=== PATIENT | female | born 1985 | race Caucasian/White ===

== ENCOUNTER 2017-12-26 03:04 | Inpatient (IN) | payer OTHER ==
[2017-12-26 03:34] VITALS: BMI 28.3
[2017-12-26] MEDS ORDERED: ONDANSETRON 4 MG/2 ML VIAL IVPUSH ONE (06:00)
[2017-12-26] MEDS ORDERED: SODIUM CHLORIDE 0.9% 500 ML INFUS.BAG IV ONE (06:00)
[2017-12-26] MEDS ORDERED: morphine CARPU-JECT 4 MG/1 ML DISP.SYRIN IVPUSH ONE (06:00)
--- NOTE | 2017-12-26 06:01 | PDOC ---
History of Present Illness - General Chief Complaint: Back Pain Stated Complaint: VOMITING,ABD PAIN Time Seen by Provider: 12/26/17 05:45 History Source: Patient Exam Limitations: No Limitations - History of Present Illness Initial Comments: 32 y/o female presenting to [facility] ER via private auto complaining of abdominal pain and sensation of a full bladder. Pain woke the pt from sleep earlier this morning around 1am. Reports pain is mostly around the lower part of her abdomen and into the right side flank and lower back. No history of similar or trauma to the area. Denies dysuria, hematuria, frequency, or vaginal discharge. Pt is not currently sexually active. Denies history of STDs. Endorses nausea, two episodes of vomiting, subjective fever, and chills. PCP: None PMH: -Anxiety - Depression - ADHD PSH: - Denies Social: - Denies EtOH - Smokes 4 cigerretes per day - Street Drugs: Denies Past History - Past Medical History Allergies/Adverse Reactions: Allergies Allergy/AdvReac Type Severity Reaction Status Date / Time No Known Allergies Allergy Verified 12/26/17 03:34 - Suicide/Smoking/Psychosocial Hx Smoking History: Never smoked Have you smoked in the past 12 months: No Information on smoking cessation initiated: No Hx Alcohol Use: No Drug/Substance Use Hx: No Review of Systems - Review of Systems Able to Perform ROS?: Yes Comments:: In addition to that documented in the HPI above, the additional ROS was obtained : Constitutional: Denies fevers or chills Eyes: Denies vision changes ENMT: Denies sore throat CV: Denies chest pain Resp: Denies SOB GI: Denies diarrhea. Endorses vomiting. : Denies painful urination MSK: Denies recent trauma Skin: Denies new rashes Neuro: Denies new numbness or tingling or weakness Endocrine: Denies polyuria Heme: Denies bleeding or bruising *Physical Exam - Vital Signs Last Vital Signs Temp Pulse Resp BP Pulse Ox 98.1 F 99 H 18 144/94 99 12/26/17 03:31 12/26/17 03:31 12/26/17 03:31 12/26/17 03:31 12/26/17 03:31 - Physical Exam Comments: Constitutional: Well-developed, well-nourished female in obvious discomfort. Found sitting bent forward at the waist in supervisor porcelain department. Alert and oriented x4. Answered all questions appropriately and completely. Speech was non-labored , non-pressured. HEENT: Normocephalic. No obvious external signs of trauma. Hearing grossly normal. No nasal discharge. Neck is supple, trachea is midline. Cardiovascular: Regular rate and regular rhythm. No murmur, rubs, clicks, or gallops. Peripheral pulses: Radial pulses full. Respiratory: Breathing unlabored. Equal chest rise and fall. Clear to auscultation bilaterally. No stridor, no wheezing, no rhonchi. Gastrointestinal: abdomen is tender in RLQ w/ rebound and guarding. Also tender in RUQ and R flank but without guarding. No hepatosplenemegaly. No pulsatile masses. No overlying skin lesions or obvious signs of trauma. Neuro: Alert and oriented. Moving all four extremities spontaneously. Ambulating through department without assistance. Skin: Warm, dry, and intact. No bruising, rashes, or other lesions. No palpable nodules. Lymphatics: No cervical, supraclavicular, epitrochlear or inguinal nodes palpated. : R CVA tenderness. Psych: Affect: tearful. Mood: concerned. ED Treatment Course - LABORATORY CBC & Chemistry Diagram: 12/26/17 06:27 12/26/17 06:27 - RADIOLOGY Radiology Studies Ordered: Category Date Time Status ABDOMEN & PELVIS CT WITH CONTR [CT] Stat CT Scan 12/26/17 05:59 Ordered Medical Decision Making - Medical Decision Making 32 y/o female presenting with sudden onset RLQ pain with rebound and guarding. No history of similar. Afebrile. Vitals remarkable for mild hypertension without tachycardia. Concern for acute appendicitis. D/D includes ectopic , ovarian torsion, ovarian cyst, nephrolithiasis, cystitis, pyelonephritis, PID. Will obtain CBC, CMP, Lipase, serum , UA, urine culture, EKG, pre-op labs, and CT of Abdomen with IV contrast. Ordered morphine , zofran, and NS IVFB for symptom relief. CBC revealed leukocytosis. CMP unremarkable for electrolyte derangement or elevated LFTs. Lipase not elevated. 12/26/17 07:44 Pt signed out to resident Dr. Garcia after she was verbally appraised of the pt's HPI and current condition. Will f/u on pending labs and CT scan. *DC/Admit/Observation/Transfer Diagnosis at time of Disposition: RLQ abdominal pain - Discharge Dispostion Condition at time of disposition: Fair - Referrals - Patient Instructions - Post Discharge Activity
[2017-12-26] MEDS ORDERED: ONDANSETRON 4 MG/2 ML VIAL ONE ×2 (06:31→15:55)
[2017-12-26] MEDS ORDERED: morphine SULFATE 4 MG/ML VIAL ONE (06:31)
[2017-12-26 06:34] LABS: BASO % 0.3 % (0-2.0); EOS % 0.1 % (0-4.5); HEMATOCRIT 39.6 % (32.4-45.2); HEMOGLOBIN 12.9 GM/dL (10.7-15.3); LYMPH % 7.1 % (8-40); MCH 30.3 pg (25.7-33.7); MCHC 32.7 g/dl (32.0-36.0); MEAN CELL VOLUME 92.6 fl (80-96); MEAN PLT VOLUME 8.1 fl (7.5-11.1); MONO % 3.3 % (3.8-10.2); NEUT % 89.2 % (42.8-82.8); PLATELET COUNT 341 K/MM3 (134-434); RBC 4.27 M/mm3 (3.60-5.2); RDW 13.2 % (11.6-15.6)
[2017-12-26 06:44] LABS: INR 1.03 (0.83-1.09); PROTHROMBIN TIME (PATIENT) 12.2 SEC (9.7-13.0)
[2017-12-26 06:56] LABS: ALBUMIN 4.1 g/dl (3.4-5.0); ALK PHOS 74 U/L (45-117); ANION GAP 6 MMOL/L (8-16); BILIRUBIN,TOTAL 0.4 mg/dL (0.2-1); BLOOD UREA NITROGEN 20 mg/dL (7-18); CALCIUM 9.1 mg/dL (8.5-10.1); CHLORIDE 106 mmol/L (98-107); CO2 25 mmol/L (21-32); CREATININE 1.1 mg/dL (0.55-1.3); GLUCOSE,RANDOM 118 mg/dL (74-106); LIPASE 186 U/L (73-393); POTASSIUM 4.1 mmol/L (3.5-5.1); SGOT/AST 20 U/L (15-37); SGPT/ALT 28 U/L (13-61); SODIUM 138 mmol/L (136-145); TOT PROT 7.8 g/dl (6.4-8.2)
--- NOTE | 2017-12-26 07:48 | PDOC ---
*Physical Exam - Vital Signs Last Vital Signs Temp Pulse Resp BP Pulse Ox 98.1 F 99 H 18 144/94 99 12/26/17 03:31 12/26/17 03:31 12/26/17 03:31 12/26/17 03:31 12/26/17 03:31 Heart Score/ECG Review - ECG Impressions Comment:: 12/26/17 12:08 rate 63. regulary rhythm. normal axis. normal intervals. non-specific ST changes. ED Treatment Course - LABORATORY CBC & Chemistry Diagram: 12/26/17 06:27 12/26/17 06:27 - ADDITIONAL ORDERS Additional order review: Laboratory Results 12/26/17 12/26/17 06:27 06:27 PT with INR 12.20 INR 1.03 Sodium 138 Potassium 4.1 Chloride 106 Carbon Dioxide 25 Anion Gap 6 L BUN 20 H Creatinine 1.1 Creat Clearance w eGFR 57.93 Random Glucose 118 H Calcium 9.1 Total Bilirubin 0.4 AST 20 ALT 28 Alkaline Phosphatase 74 Total Protein 7.8 Albumin 4.1 Lipase 186 12/26/17 06:27 RBC 4.27 MCV 92.6 MCHC 32.7 RDW 13.2 MPV 8.1 Neutrophils % 89.2 H Lymphocytes % 7.1 L Monocytes % 3.3 L Eosinophils % 0.1 Basophils % 0.3 - Medications Given in the ED: ED Medications Discontinued Medications Generic Name Dose Route Start Last Admin Trade Name Freq PRN Reason Stop Dose Admin Morphine Sulfate 4 mg 12/26/17 06:00 12/26/17 07:34 Morphine Injection - IVPUSH 12/26/17 06:01 4 mg ONCE ONE Administration Ondansetron HCl 4 mg 12/26/17 06:00 12/26/17 07:35 Zofran Injection IVPUSH 12/26/17 06:01 4 mg ONCE ONE Administration Sodium Chloride 1,000 ml 12/26/17 06:00 12/26/17 07:35 Normal Saline - IV 12/26/17 06:01 1,000 ml ONCE ONE Administration Medical Decision Making - Medical Decision Making 12/26/17 08:25 32 year old female with no PMH A0 presented to ED for lower abdominal pain associated with nausea since 1 am today. Initial examination was significant for - RLQ tenderness (+) guarding. R flank pain (+) CVA tenderness. Pt was given 4 mg IV morphine, 4 mg zofran, IVF in ED. My examination - Constitutional: Well-nourished, Well-developed, appearing stated age. HEENT: head is normocephalic, atraumatic. EOMI. PERRLA. Neck: supple. Full ROM. Heart: regular rhythm. no murmurs, rubs or gallops. Lungs: clear to auscultation bilaterally. no crackles, rhonchi or wheezing. no stridor. Abdomen: soft. tenderness to RLQ. normal bowel sounds. (+) guarding. Pelvic: bimanual examination was performed, no CMT, no tenderness noted bilaterally. Extremities: Peripheral pulses intact. No lower extremity edema. Neurological: CN 2-12 grossly intact. Moves all four extremities. Psych: awake, alert, oriented x3. Follows commands. Answers questions appropriately. Initial Vital Signs Temp Pulse Resp BP Pulse Ox 98.1 F 99 H 18 144/94 99 12/26/17 03:31 12/26/17 03:31 12/26/17 03:31 12/26/17 03:31 12/26/17 03:31 Afebrile. Borderline tachycardia. No tachypnea. Mild hypertension, possibly secondary to pain. No hypoxia on room air. CBC WBC 14.0 K/mm3 (4.0-10.0) H 12/26/17 06:27 RBC 4.27 M/mm3 (3.60-5.2) 12/26/17 06:27 Hgb 12.9 GM/dL (10.7-15.3) 12/26/17 06:27 Hct 39.6 % (32.4-45.2) 12/26/17 06:27 MCV 92.6 fl (80-96) 12/26/17 06:27 MCH 30.3 pg (25.7-33.7) 12/26/17 06: MCHC 32.7 g/dl (32.0-36.0) 12/26/17 06: RDW 13.2 % (11.6-15.6) 12/26/17 06:27 Plt Count 341 K/MM3 (134-434) 12/26/17 06:27 MPV 8.1 fl (7.5-11.1) 12/26/17 06:27 Absolute Neuts (auto) 12.5 K/mm3 (1.5-8.0) H 12/26/17 06:27 Neutrophils % 89.2 % (42.8-82.8) H 12/26/17 06:27 Lymphocytes % 7.1 % (8-40) L 12/26/17 06:27 Monocytes % 3.3 % (3.8-10.2) L 12/26/17 06:27 Eosinophils % 0.1 % (0-4.5) 12/26/17 06:27 Basophils % 0.3 % (0-2.0) 12/26/17 06:27 Nucleated RBC % 0 % (0-0) 12/26/17 06:27 Leukocytosis - WBC 14 Left shift - Neutrophils 89.2% CMP Sodium 138 mmol/L (136-145) 12/26/17 06:27 Potassium 4.1 mmol/L (3.5-5.1) 12/26/17 06:27 Chloride 106 mmol/L (98-107) 12/26/17 06:27 Carbon Dioxide 25 mmol/L (21-32) 12/26/17 06:27 Anion Gap 6 MMOL/L (8-16) L 12/26/17 06:27 BUN 20 mg/dL (7-18) H 12/26/17 06:27 Creatinine 1.1 mg/dL (0.55-1.3) 12/26/17 06:27 Creat Clearance w eGFR 57.93 (>60) 12/26/17 06:27 Random Glucose 118 mg/dL (74-106) H 12/26/17 06:27 Calcium 9.1 mg/dL (8.5-10.1) 12/26/17 06:27 Total Bilirubin 0.4 mg/dL (0.2-1) 12/26/17 06:27 AST 20 U/L (15-37) 12/26/17 06:27 ALT 28 U/L (13-61) 12/26/17 06:27 Alkaline Phosphatase 74 U/L (45-117) 12/26/17 06:27 Total Protein 7.8 g/dl (6.4-8.2) 12/26/17 06:27 Albumin 4.1 g/dl (3.4-5.0) 12/26/17 06:27 Lipase 186 U/L (73-393) 12/26/17 06:27 Serum , Qual Negative 12/26/17 06:27 Elevated BUN, normal Cr. Likely secondary to dehydration. Urine Test Results Urine Color Yellow 12/26/17 08:00 Urine Appearance Cloudy 12/26/17 08:00 Urine pH 6.0 (5.0-8.0) 12/26/17 08:00 Ur Specific [place] 1.023 (1.001-1.035) 12/26/17 08:00 Urine Protein 1+ (NEGATIVE) H 12/26/17 08:00 Urine Glucose (UA) Negative (NEGATIVE) 12/26/17 08:00 Urine Ketones Negative (NEGATIVE) 12/26/17 08:00 Urine Blood 2+ (NEGATIVE) H 12/26/17 08:00 Urine Nitrite Positive (NEGATIVE) 12/26/17 08:00 Urine Bilirubin Negative (<2.0 mg/dL) 12/26/17 08:00 Ur Leukocyte Esterase Trace (NEGATIVE) 12/26/17 08:00 Ur Epithelial Cells Moderate /HPF (FEW) 12/26/17 08:00 Urine Bacteria Rare /hpf (NONE SEEN) 12/26/17 08:00 Urine Mucus Many 12/26/17 08:00 Concern for appendicitis, RLQ tenderness (+) leukocytosis - Pending CT IV contrast Low concern for ovarian torsion, no adnexal tenderness. - If CT negative, will order TVUS Concern for UTI/pyelo - UA positive for blood and protein - UA positive for LE, positive for nitrite, WBC 10 Concern for nephrolithiasis - Pending CT 12/26/17 10:18 Serum test negative. 12/26/17 10:32 CT - 3.8 mm right sided stone at UV junction with hydro. - Pending rectal temperature - Concerned for infected stone - Levaquin 750 mg ordered - Urology paged given the possibility of an infected stone 12/26/17 11:00 Rectal temperature - 98.3F 12/26/17 11:[address] Matamoros about the patient, he agrees that the patient should be admitted and will be consulting. Admitting team paged. 12/26/17 12:[address] Lovett about the case, who agrees to have the patient admitted for suspected infected kidney stone. Pt will be admitted to Dr. Herrera's service. *DC/Admit/Observation/Transfer Diagnosis at time of Disposition: RLQ abdominal pain - Discharge Dispostion Condition at time of disposition: Stable Decision to Admit order: Yes - Referrals - Patient Instructions - Post Discharge Activity
[2017-12-26 08:10] LABS: URINE APPEARANCE CLOUDY; URINE BILIRUBIN NEGATIVE (<2.0 mg/dL); URINE COLOR YELLOW; URINE GLUCOSE (UA) NEGATIVE (NEGATIVE); URINE KETONE NEGATIVE (NEGATIVE); URINE LEUK ESTERASE TRACE (NEGATIVE); URINE NITRITE POSITIVE (NEGATIVE); URINE UROBILINOGEN NEGATIVE mg/dL (0.2-1.0)
[2017-12-26 08:19] LABS: URINE PROTEIN 1+ (NEGATIVE)
[2017-12-26 08:20] LABS: EPI CELLS MODERATE /HPF (FEW); URINE BACTERIA RARE /hpf (NONE SEEN); URINE MUCUS MANY; YEAST RARE
[2017-12-26] MEDS ORDERED: morphine SULFATE 4 MG/ML VIAL IVPUSH PRN (12:39)
[2017-12-26] MEDS ORDERED: KETOROLAC TROMETHAMINE 15 MG/ML VIAL IVPUSH PRN (12:39)
[2017-12-26] MEDS ORDERED: SODIUM CHLORIDE 1,000 ML IV SCH (12:45)
--- NOTE | 2017-12-26 12:45 | HP ---
CHIEF COMPLAINT:Abdominal pain PCP:Not on staff HISTORY OF PRESENT ILLNESS: 32F with history of depression/anxiety, followed by psychiatrist, presents to the hospital with acute onset of abdominal pain and nausea early this morning around 1AM. she states she was in her usual state of health until 1AM. She had a CTAP done which revealed a right 3.8mm stone in the UVJ with proximal hydronephrosis and 3mm nonobstructing stone in the right kidney collecting system. She denies hematuria, dysuria, vomiting, fever, chest pain, diarrhea, constipation, or shortness of breath. Pain is somewhat relieved with morphine. UA in ED found to be positive. Received Levaquin 750mg IV. ER course was notable for: (1)Morphine (2)IVF (3)ABx CT scan Recent Travel:Denies PAST MEDICAL HISTORY:Depression anxiety PAST SURGICAL HISTORY:Denies Social History: Smoking:Smokes 4 cigarettes per day Alcohol:Denies Drugs: Denies Family History:Colon Ca in mother at age 49 Allergies No Known Allergies Allergy (Verified 12/26/17 03:34) HOME MEDICATIONS: Home Medications Medication Instructions Recorded Clonazepam [Klonopin] 2 mg PO HS 12/26/17 Escitalopram Oxalate [Lexapro -] 20 mg PO DAILY 12/26/17 REVIEW OF SYSTEMS CONSTITUTIONAL: Absent: fever, chills, diaphoresis, generalized weakness, malaise, weight change Present:loss of appetite HEENT: Absent: rhinorrhea, nasal congestion, throat pain, throat swelling, difficulty swallowing, mouth swelling, ear pain, eye pain, visual changes CARDIOVASCULAR: Absent: chest pain, syncope, palpitations, irregular heart rate, lightheadedness , peripheral edema RESPIRATORY: Absent: cough, shortness of breath, dyspnea with exertion, orthopnea, wheezing, stridor, hemoptysis GASTROINTESTINAL: Absent: abdominal pain, abdominal distension, vomiting, diarrhea, constipation, melena, hematochezia Present:Nausea GENITOURINARY: Absent: dysuria, frequency, urgency, hesitancy, hematuria, flank pain, genital pain MUSCULOSKELETAL: Absent: myalgia, arthralgia, joint swelling, back pain, neck pain SKIN: Absent: rash, itching, pallor HEMATOLOGIC/IMMUNOLOGIC: Absent: easy bleeding, easy bruising, lymphadenopathy, frequent infections ENDOCRINE: Absent: unexplained weight gain, unexplained weight loss, heat intolerance, cold intolerance NEUROLOGIC: Absent: headache, focal weakness or paresthesias, dizziness, unsteady gait, seizure, mental status changes, bladder or bowel incontinence PSYCHIATRIC: Absent: suicidal or homicidal ideation, hallucinations. Present:anxiety, depression PHYSICAL EXAMINATION Vital Signs - 24 hr 12/26/17 12/26/17 03:31 11:00 Temperature 98.1 F 98.3 F Pulse Rate 99 H Respiratory 18 Rate Blood Pressure 144/94 O2 Sat by Pulse 99 Oximetry (%) GENERAL: Awake, alert, and fully oriented, in no acute distress. HEAD: Normal with no signs of trauma.. NECK: Normal range of motion, supple without JVD. LUNGS: Breath sounds equal, clear to auscultation bilaterally. No accessory muscle use. HEART: Regular rate and rhythm, normal S1 and S2 without murmur, rub or gallop. ABDOMEN: Soft, TTP RUQ and RLQ not distended. Right sided CVA tenderness MUSCULOSKELETAL: Right sided CVA tenderness. UPPER EXTREMITIES: warm, well-perfused. No peripheral edema. LOWER EXTREMITIES: warm, well-perfused. No calf tenderness. No peripheral edema. NEUROLOGICAL: Cranial nerves II-XII intact. Normal speech. PSYCHIATRIC: Cooperative. Good eye contact. Appropriate mood and affect. SKIN: Warm, dry, normal turgor Laboratory Results - last 24 hr 12/26/17 12/26/17 12/26/17 06:27 06:27 06:27 WBC 14.0 H RBC 4.27 Hgb 12.9 Hct 39.6 MCV 92.6 MCH 30.3 MCHC 32.7 RDW 13.2 Plt Count 341 MPV 8.1 Absolute Neuts (auto) 12.5 H Neutrophils % 89.2 H Lymphocytes % 7.1 L Monocytes % 3.3 L Eosinophils % 0.1 Basophils % 0.3 Nucleated RBC % 0 PT with INR 12.20 INR 1.03 PTT (Actin FS) 26.0 Sodium Potassium Chloride Carbon Dioxide Anion Gap BUN Creatinine Creat Clearance w eGFR Random Glucose Calcium Total Bilirubin AST ALT Alkaline Phosphatase Total Protein Albumin Lipase Serum , Qual Urine Color Urine Appearance Urine pH Ur Specific [place] Urine Protein Urine Glucose (UA) Urine Ketones Urine Blood Urine Nitrite Urine Bilirubin Urine Urobilinogen Ur Leukocyte Esterase Urine WBC (Auto) Urine RBC (Auto) Ur Epithelial Cells Urine Bacteria Urine Mucus Urine Yeast 12/26/17 12/26/17 12/26/17 06:27 06:27 08:00 WBC RBC Hgb Hct MCV MCH MCHC RDW Plt Count MPV Absolute Neuts (auto) Neutrophils % Lymphocytes % Monocytes % Eosinophils % Basophils % Nucleated RBC % PT with INR INR PTT (Actin FS) Sodium 138 Potassium 4.1 Chloride 106 Carbon Dioxide 25 Anion Gap 6 L BUN 20 H Creatinine 1.1 Creat Clearance w eGFR 57.93 Random Glucose 118 H Calcium 9.1 Total Bilirubin 0.4 AST 20 ALT 28 Alkaline Phosphatase 74 Total Protein 7.8 Albumin 4.1 Lipase 186 Serum , Qual Negative Urine Color Yellow Urine Appearance Cloudy Urine pH 6.0 Ur Specific [place] 1.023 Urine Protein 1+ H Urine Glucose (UA) Negative Urine Ketones Negative Urine Blood 2+ H Urine Nitrite Positive Urine Bilirubin Negative Urine Urobilinogen Negative Ur Leukocyte Esterase Trace Urine WBC (Auto) 10 Urine RBC (Auto) 58 Ur Epithelial Cells Moderate Urine Bacteria Rare Urine Mucus Many Urine Yeast Rare CTAP: There is right perinephric stranding. There is asymmetrical delay in enhancement of the right kidney with dilatation of the pelvicalyceal system and ureter. A distal stone is identified measuring 3.8 mm at the UV junction with proximal hydronephrosis. A 3 mm nonobstructing stone is noted within the collecting system on the right. ASSESSMENT/PLAN: 32F with PMH of depression and anxiety presents to the ER with acute onset abdominal pain found to have a right obstructing 3.8mm UVJ stone and a mildly positive UA. Sepsis secondary to Right nephrolithiasis with 3.8mm stone at UVJ causing proximal hydronephrosis. Patient also has a weakly positive UA which could be from an infected stone vs contamination from the stone. WBC count >12 HR >90 source is from urine Admit to inpatient services received levaquin in ER start on ceftriaxone 1gm daily given perinephric stranding on CT f/u UCx f/u urology consult-Dr. Shultz pain control antiemetics Leukocytosis: from UTI trend WBC count Depression: Continue lexapro 20mg po daily she states this has really controlled her depression outpatient follow up with psychiatrist Anxiety: Continue Klonopin 2mg po HS follow up with psychiatrist as outpatient FEN: NS @ 125ml/hr no electrolyte issues NPO for now pending urology consult PPx: SCDs/HSQ No GI PPx indicated early ambulation Patient endorses mother had colon Ca at age 49. Counselled on the importance of her and her siblings getting a colonoscopy at age 39. She states her and her mother's physicians have already informed them. Case discussed with Dr. Herrera Visit type - Emergency Visit Emergency Visit: Yes Care time: The patient presented to the Emergency Department on the above date and was hospitalized for further evaluation of their emergent condition. - New Patient This patient is new to me today: Yes Date on this admission: 12/26/17 - Critical Care Critical Care patient: No
[2017-12-26] MEDS ORDERED: ONDANSETRON 4 MG/2 ML VIAL IVPUSH PRN (13:22)
[2017-12-26] MEDS ORDERED: MIDAZOLAM HCL 2 MG/2 ML SINGLE DOSE VIAL ONE (13:35)
[2017-12-26] MEDS ORDERED: PROPOFOL 20 ML ONE (13:35)
--- NOTE | 2017-12-26 13:44 | CON.GU ---
Consult - History of Present Illness History of Present Illness: 32 yo female admitted with rt renal colic secondary to obstructive 3mm RDU stone , fever, positive UA and elevated WBC. No prior history - Alcohol/Substance Use Hx Alcohol Use: No - Smoking History Smoking history: Never smoked Have you smoked in the past 12 months: No Home Medications - Allergies Allergies/Adverse Reactions: Allergies Allergy/AdvReac Type Severity Reaction Status Date / Time No Known Allergies Allergy Verified 12/26/17 03:34 - Home Medications Home Medications: Ambulatory Orders Clonazepam [Klonopin] 2 mg PO HS 12/26/17 Escitalopram Oxalate [Lexapro -] 20 mg PO DAILY 12/26/17 Physical Exam- Vital Signs: Vital Signs Temperature 98.9 F 12/26/17 12:55 Pulse Rate 90 12/26/17 12:55 Respiratory Rate 16 12/26/17 12:55 Blood Pressure 125/90 12/26/17 12:55 O2 Sat by Pulse Oximetry (%) 99 12/26/17 12:55 Labs: CBC, BMP 12/26/17 06:27 12/26/17 06:27 Imaging - Results Cat Scan: Report Reviewed Problem List - Problems (1) Right ureteral stone Assessment/Plan: in light of pos UA, elevated WBC and fever, will plan for emergent stent placement Code(s): N20.1 - CALCULUS OF URETER
[2017-12-26] MEDS ORDERED: CEFTRIAXONE 1 GM in DEXTROSE 5%-WATER - 50 ML IVPB SCH (13:45)
[2017-12-26] MEDS: ONDANSETRON 4 MG/2 ML VIAL IVPUSH PRN (15:56)
[2017-12-26] MEDS: SODIUM CHLORIDE 1,000 ML IV SCH ×2 (17:04→23:14)
[2017-12-26] MEDS: LACTATED RINGERS SOLUTION 1,000 ML IV SCH (17:31)
[2017-12-26] MEDS ORDERED: HEPARIN NA (PORCINE) 5,000 UNITS/ML 1ML VIAL SQ SCH (18:00)
--- NOTE | 2017-12-26 18:30 | PN ---
Teaching Attending Note Name of Resident: Milton Lovett ATTENDING PHYSICIAN STATEMENT I saw and evaluated the patient. I reviewed the resident's note and discussed the case with the resident. I agree with the resident's findings and plan as documented. SUBJECTIVE: This is a 32 year old woman with a history of depression, anxiety who comes to the ED complaining of abdominal pain, nausea and vomiting that awoke her from sleep around 1am. The pain is located in the right flank and right side of her abdomen. She reports having fever and chills. OBJECTIVE: Vital Signs Period Temp Pulse Resp BP Sys/Buck Pulse Ox Last 24 Hr 97.7 F-99.8 F 70-115 14-20 108-144/54-94 99-100 HEART: S1S2, tachycardic LUNGS: Clear ABDOMEN: Soft, non-distended, (+) RLQ tenderness, (+) right CVA tenderness, normal BS EXTREMITIES: No edema Laboratory Tests 12/26/17 12/26/17 12/26/17 06:27 06:27 06:27 WBC 14.0 H RBC 4.27 Hgb 12.9 Hct 39.6 MCV 92.6 MCH 30.3 MCHC 32.7 RDW 13.2 Plt Count 341 MPV 8.1 Absolute Neuts (auto) 12.5 H Neutrophils % 89.2 H Lymphocytes % 7.1 L Monocytes % 3.3 L Eosinophils % 0.1 Basophils % 0.3 Nucleated RBC % 0 PT with INR 12.20 INR 1.03 PTT (Actin FS) 26.0 Sodium Potassium Chloride Carbon Dioxide Anion Gap BUN Creatinine Creat Clearance w eGFR Random Glucose Calcium Total Bilirubin AST ALT Alkaline Phosphatase Total Protein Albumin Lipase Serum , Qual Urine Color Urine Appearance Urine pH Ur Specific [place] Urine Protein Urine Glucose (UA) Urine Ketones Urine Blood Urine Nitrite Urine Bilirubin Urine Urobilinogen Ur Leukocyte Esterase Urine WBC (Auto) Urine RBC (Auto) Ur Epithelial Cells Urine Bacteria Urine Mucus Urine Yeast 12/26/17 12/26/17 12/26/17 06:27 06:27 08:00 WBC RBC Hgb Hct MCV MCH MCHC RDW Plt Count MPV Absolute Neuts (auto) Neutrophils % Lymphocytes % Monocytes % Eosinophils % Basophils % Nucleated RBC % PT with INR INR PTT (Actin FS) Sodium 138 Potassium 4.1 Chloride 106 Carbon Dioxide 25 Anion Gap 6 L BUN 20 H Creatinine 1.1 Creat Clearance w eGFR 57.93 Random Glucose 118 H Calcium 9.1 Total Bilirubin 0.4 AST 20 ALT 28 Alkaline Phosphatase 74 Total Protein 7.8 Albumin 4.1 Lipase 186 Serum , Qual Negative Urine Color Yellow Urine Appearance Cloudy Urine pH 6.0 Ur Specific [place] 1.023 Urine Protein 1+ H Urine Glucose (UA) Negative Urine Ketones Negative Urine Blood 2+ H Urine Nitrite Positive Urine Bilirubin Negative Urine Urobilinogen Negative Ur Leukocyte Esterase Trace Urine WBC (Auto) 10 Urine RBC (Auto) 58 Ur Epithelial Cells Moderate Urine Bacteria Rare Urine Mucus Many Urine Yeast Rare Home Medications Medication Instructions Recorded Clonazepam [Klonopin] 2 mg PO HS 12/26/17 Escitalopram Oxalate [Lexapro -] 20 mg PO DAILY 12/26/17 ASSESSMENT AND PLAN: This is a 32 year old woman with a history of depression, anxiety who presented to the ED with abdominal pain, nausea, vomiting, fever, and chills. 1. Sepsis (tachycardia, WBC 14.0) secondary to UTI with obstructing right UVJ stone - Levaquin given in ED - will change to Rocephin - IV fluid - Toradol as needed for pain - Zofran as needed for nausea - Follow up urine culture - Urology consult 2. Depression with anxiety - Continue Lexapro, Klonopin
[2017-12-26] MEDS: HEPARIN NA (PORCINE) 5,000 UNITS/ML 1ML VIAL SQ SCH (18:49)
--- NOTE | 2017-12-26 21:52 | EKG ---
Test Reason : Blood Pressure : / mmHG Vent. Rate : 063 BPM Atrial Rate : 063 BPM P-R Int : 110 ms QRS Dur : 084 ms QT Int : 428 ms P-R-T Axes : 048 044 048 degrees QTc Int : 437 ms SINUS RHYTHM WITH SHORT UT NONSPECIFIC T WAVE ABNORMALITY ABNORMAL ECG NO PREVIOUS ECGS AVAILABLE Confirmed by KHALIF HOOD MD ([id number]) on 12/26/2017 9:52:14 PM Referred By: Confirmed By:KHALIF HOOD MD
[2017-12-26] MEDS ORDERED: clonazePAM 2 MG TABLET PO SCH (22:00)
[2017-12-26] MEDS: clonazePAM 0.5 MG TABLET PO SCH (22:01)
[2017-12-27] MEDS: HEPARIN NA (PORCINE) 5,000 UNITS/ML 1ML VIAL SQ SCH ×3 (02:03→18:23)
[2017-12-27] MEDS: morphine SULFATE 4 MG/ML VIAL IVPUSH PRN ×3 (05:59→18:04)
[2017-12-27] MEDS: SODIUM CHLORIDE 1,000 ML IV SCH (06:01)
[2017-12-27 08:21] LABS: ANION GAP 7 MMOL/L (8-16); BLOOD UREA NITROGEN 11 mg/dL (7-18); CALCIUM 8.3 mg/dL (8.5-10.1); CHLORIDE 109 mmol/L (98-107); CO2 25 mmol/L (21-32); CREATININE 0.7 mg/dL (0.55-1.3); GLUCOSE,RANDOM 116 mg/dL (74-106); MAGNESIUM 1.9 mg/dL (1.8-2.4); POTASSIUM 3.8 mmol/L (3.5-5.1); SODIUM 141 mmol/L (136-145)
[2017-12-27 08:22] LABS: BASO % 0.3 % (0-2.0); EOS % 0.6 % (0-4.5); HEMATOCRIT 32.3 % (32.4-45.2); HEMOGLOBIN 10.7 GM/dL (10.7-15.3); LYMPH % 15.2 % (8-40); MCH 30.9 pg (25.7-33.7); MCHC 33.3 g/dl (32.0-36.0); MEAN CELL VOLUME 92.9 fl (80-96); MEAN PLT VOLUME 8.4 fl (7.5-11.1); MONO % 5.2 % (3.8-10.2); NEUT % 78.7 % (42.8-82.8); PLATELET COUNT 261 K/MM3 (134-434); RBC 3.47 M/mm3 (3.60-5.2); WHITE BLOOD COUNT 12.5 K/mm3 (4.0-10.0)
[2017-12-27] MEDS ORDERED: ESCITALOPRAM OXALATE 20 MG TABLET (FP) PO SCH (10:00)
[2017-12-27] MEDS ORDERED: cefTRIAXone SODIUM 1 GM VIAL ONE (10:13)
[2017-12-27] MEDS ORDERED: ESCITALOPRAM OXALATE 10 MG TABLET (FP) ONE ×2 (10:13→10:19)
[2017-12-27] MEDS ORDERED: DEXTROSE 5%-WATER - 50 ML IVPB ONE (10:13)
[2017-12-27] MEDS: CEFTRIAXONE 1 GM in DEXTROSE 5%-WATER - 50 ML IVPB SCH (10:16)
[2017-12-27] MEDS: ESCITALOPRAM OXALATE 20 MG TABLET (FP) PO SCH (10:19)
[2017-12-27] MEDS: LACTATED RINGERS SOLUTION 1,000 ML IV SCH (14:43)
--- NOTE | 2017-12-27 15:14 | PN ---
Physical Exam: SUBJECTIVE: Patient seen and examined. She complains of right back pain and gets relief with Toradol. OBJECTIVE: Vital Signs Period Temp Pulse Resp BP Sys/Buck Pulse Ox Last 24 Hr 98.0 F-101.4 F 75-104 14-20 102-128/62-79 99-100 GENERAL: The patient is awake, alert, and fully oriented, in no acute distress. LUNGS: Breath sounds equal, clear to auscultation bilaterally, no wheezes, no crackles, no accessory muscle use. HEART: Regular rhythm, tachycardic, S1, S2 without murmur, rub or gallop. ABDOMEN: Soft, nontender, nondistended, normoactive bowel sounds, no guarding, no rebound, no hepatosplenomegaly, no masses. (+) right CVA tenderness. EXTREMITIES: 2+ pulses, warm, well-perfused, no edema. Laboratory Results - last 24 hr 12/27/17 12/27/17 12/27/17 07:20 07:20 07:20 WBC 12.5 H RBC 3.47 L Hgb 10.7 Hct 32.3 L D MCV 92.9 MCH 30.9 MCHC 33.3 RDW 13.0 Plt Count 261 D MPV 8.4 Absolute Neuts (auto) 9.9 H Neutrophils % 78.7 Lymphocytes % 15.2 D Monocytes % 5.2 Eosinophils % 0.6 D Basophils % 0.3 Nucleated RBC % 0 Sodium 141 Potassium 3.8 Chloride 109 H Carbon Dioxide 25 Anion Gap 7 L BUN 11 Creatinine 0.7 Creat Clearance w eGFR > 60 Random Glucose 116 H Hemoglobin A1c % 5.4 Calcium 8.3 L Phosphorus 3.0 Magnesium 1.9 Active Medications Generic Name Dose Route Start Last Admin Trade Name Freq PRN Reason Stop Dose Admin Clonazepam 2 mg 12/26/17 22:00 12/26/17 22:01 Klonopin - PO 2 mg HS FARHANA Administration Escitalopram Oxalate 20 mg 12/27/17 10:00 12/27/17 10:19 Lexapro - PO 20 mg DAILY FARHANA Administration Fentanyl 50 mcg 12/26/17 14:27 12/26/17 16:30 Sublimaze Injection - IVPUSH 50 mcg [id number] PRN Administration PAIN-PACU ORDER X 4 DOSES ONLY Heparin Sodium (Porcine) 5,000 unit 12/26/17 18:00 12/27/17 10:17 Heparin - SQ 5,000 unit Q8H-IV FARHANA Administration Lactated Ringer's 1,000 mls @ 125 mls/hr 12/26/17 14:30 12/27/17 14:43 Lactated Ringers Solution IV Not Given ASDIR FARHANA Ceftriaxone Sodium 1 gm/ 50 mls @ 100 mls/hr 12/27/17 10:00 12/27/17 10:16 Dextrose IVPB 100 mls/hr DAILY FARHANA Administration Sodium Chloride 1,000 mls @ 125 mls/hr 12/26/17 14:48 12/27/17 06:01 Normal Saline - IV 125 mls/hr ASDIR FARHANA Administration Ketorolac Tromethamine 15 mg 12/26/17 14:48 Toradol Injection - IVPUSH 12/31/17 12:38 Q6H PRN PAIN LEVEL 1-5 Morphine Sulfate 4 mg 12/26/17 14:48 12/27/17 12:21 Morphine Sulfate IVPUSH 4 mg Q4H PRN Administration PAIN LEVEL 6-10 Ondansetron HCl 4 mg 12/26/17 14:48 12/26/17 15:56 Zofran Injection IVPUSH 4 mg Q6H PRN Administration NAUSEA AND/OR VOMITING ASSESSMENT/PLAN: This is a 32 year old woman with a history of depression, anxiety who presented to the ED with abdominal pain, nausea, vomiting, fever, and chills. 1. Sepsis (tachycardia, WBC 14.0) secondary to UTI with obstructing right UVJ stone - Had temp 101.4 last night - Urine culture growing gram negative rods - Continue Rocephin, IV fluid, Toradol as needed for pain, Zofran as needed for nausea - Plan for stent placement 2. Depression with anxiety - Continue Lexapro, Klonopin Visit type - Emergency Visit Emergency Visit: Yes ED Registration Date: 12/26/17 Care time: The patient presented to the Emergency Department on the above date and was hospitalized for further evaluation of their emergent condition. - New Patient This patient is new to me today: No - Critical Care Critical Care patient: No - Discharge Referral Referred to [facility] Med P.C.: No
[2017-12-27] MEDS: ONDANSETRON 4 MG/2 ML VIAL IVPUSH PRN (18:04)
[2017-12-27] MEDS: ACETAMINOPHEN 325 MG TABLET (FP) PO PRN (20:39)
[2017-12-27] MEDS: KETOROLAC TROMETHAMINE 15 MG/ML VIAL IVPUSH PRN (22:17)
[2017-12-28] MEDS: clonazePAM 0.5 MG TABLET PO SCH ×2 (00:42→21:50)
[2017-12-28] MEDS: SODIUM CHLORIDE 1,000 ML IV SCH ×4 (00:45→18:59)
[2017-12-28] MEDS: HEPARIN NA (PORCINE) 5,000 UNITS/ML 1ML VIAL SQ SCH ×3 (02:00→17:46)
[2017-12-28 08:21] LABS: BASO % 0.5 % (0-2.0); EOS % 0.6 % (0-4.5); HEMATOCRIT 34.5 % (32.4-45.2); HEMOGLOBIN 11.4 GM/dL (10.7-15.3); LYMPH % 18.2 % (8-40); MCH 30.7 pg (25.7-33.7); MEAN CELL VOLUME 93.2 fl (80-96); MEAN PLT VOLUME 8.5 fl (7.5-11.1); MONO % 5.4 % (3.8-10.2); NEUT % 75.3 % (42.8-82.8); PLATELET COUNT 241 K/MM3 (134-434); RDW 12.9 % (11.6-15.6); WHITE BLOOD COUNT 5.8 K/mm3 (4.0-10.0)
--- NOTE | 2017-12-28 08:37 | PN ---
Physical Exam: SUBJECTIVE: Patient seen and examined feels nauseous, fevers last night, c/o malaise and CVA pain, unable to walk around due to malaise + hematuria and +dysuria stent placed yesterday OBJECTIVE: Vital Signs Period Temp Pulse Resp BP Sys/Buck Pulse Ox Last 24 Hr 98.4 F-102.6 F 75-98 20-20 110-152/65-75 98-98 GENERAL: The patient is awake, alert, in mild discomfort EYES: sclera anicteric, conjunctiva clear. No ptosis. ENT: oropharynx clear without exudates, moist mucous membranes. LUNGS: Breath sounds equal, clear to auscultation bilaterally, no wheezes, no crackles, no accessory muscle use. HEART: Regular rate and rhythm, S1, S2 without murmur, rub or gallop. ABDOMEN: Soft, nontender, nondistended, normoactive bowel sounds, no guarding, no rebound, +CVA tenderness b/l EXTREMITIES: 2+ radial and DP pulses, warm, well-perfused, no edema. SKIN: Warm, clammy Laboratory Results - last 24 hr 12/27/17 12/27/17 12/28/17 07:20 07:20 07:15 WBC 12.5 H 5.8 RBC 3.47 L 3.70 Hgb 10.7 11.4 Hct 32.3 L D 34.5 MCV 92.9 93.2 MCH 30.9 30.7 MCHC 33.3 33.0 RDW 13.0 12.9 Plt Count 261 D 241 MPV 8.4 8.5 Absolute Neuts (auto) 9.9 H 4.4 Neutrophils % 78.7 75.3 Lymphocytes % 15.2 D 18.2 Monocytes % 5.2 5.4 Eosinophils % 0.6 D 0.6 Basophils % 0.3 0.5 Nucleated RBC % 0 0 Hemoglobin A1c % 5.4 Active Medications Generic Name Dose Route Start Last Admin Trade Name Freq PRN Reason Stop Dose Admin Acetaminophen 650 mg 12/27/17 19:49 12/27/17 20:39 Tylenol - PO 650 mg Q6H PRN Administration Fever Or Pain Clonazepam 2 mg 12/26/17 22:00 12/28/17 00:42 Klonopin - PO 2 mg HS FARHANA Administration Escitalopram Oxalate 20 mg 12/27/17 10:00 12/27/17 10:19 Lexapro - PO 20 mg DAILY FARHANA Administration Fentanyl 50 mcg 12/26/17 14:27 12/26/17 16:30 Sublimaze Injection - IVPUSH 50 mcg [id number] PRN Administration PAIN-PACU ORDER X 4 DOSES ONLY Heparin Sodium (Porcine) 5,000 unit 12/26/17 18:00 12/28/17 02:00 Heparin - SQ Not Given Q8H-IV FARHANA Lactated Ringer's 1,000 mls @ 125 mls/hr 12/26/17 14:30 12/27/17 14:43 Lactated Ringers Solution IV Not Given ASDIR FARHANA Ceftriaxone Sodium 1 gm/ 50 mls @ 100 mls/hr 12/27/17 10:00 12/27/17 10:16 Dextrose IVPB 100 mls/hr DAILY FARHANA Administration Sodium Chloride 1,000 mls @ 125 mls/hr 12/26/17 14:48 12/28/17 00:45 Normal Saline - IV 125 mls/hr ASDIR FARHANA Administration Ketorolac Tromethamine 15 mg 12/26/17 14:48 12/27/17 22:17 Toradol Injection - IVPUSH 12/31/17 12:38 15 mg Q6H PRN Administration PAIN LEVEL 1-5 Morphine Sulfate 4 mg 12/26/17 14:48 12/27/17 18:04 Morphine Sulfate IVPUSH 4 mg Q4H PRN Administration PAIN LEVEL 6-10 Ondansetron HCl 4 mg 12/26/17 14:48 12/27/17 18:04 Zofran Injection IVPUSH 4 mg Q6H PRN Administration NAUSEA AND/OR VOMITING ASSESSMENT/PLAN: 32 year old woman with depression, anxiety who presented to the ED with abdominal pain, nausea, vomiting, fever, and chills found to have obstructing nephrolithiasis atthe right UVJ admitted for sepsis. #Sepsis secondary to UTI with obstructing right UVJ stone - continued to have fevers last night a/w chills, continue tylenol prn and IVF - if pt continues to have fevers, plan to re-culture and change abx to broad spectrum - ucx with pansensitive e.coli, continue ceftriaxone 1gm daily, started 12/27 - Toradol and morphine as needed for pain - de-escalate tomorrow if pain improved - Zofran as needed for nausea - s/p stent placement on 12/[address] Layton #Depression with anxiety - Continue home medications Lexapro, Klonopin DVT:heparin q8hr subq diet: regular Visit type - Emergency Visit Emergency Visit: No - New Patient This patient is new to me today: Yes Date on this admission: 12/28/17 - Critical Care Critical Care patient: No - Discharge Referral Referred to [facility] Med P.C.: No
[2017-12-28 08:46] LABS: ANION GAP 7 MMOL/L (8-16); BLOOD UREA NITROGEN 5 mg/dL (7-18); CHLORIDE 109 mmol/L (98-107); CO2 26 mmol/L (21-32); CREATININE 0.7 mg/dL (0.55-1.3); GLUCOSE,RANDOM 85 mg/dL (74-106); POTASSIUM 3.9 mmol/L (3.5-5.1); SODIUM 141 mmol/L (136-145)
[2017-12-28] MEDS ORDERED: cefTRIAXone SODIUM 1 GM VIAL ONE (08:48)
[2017-12-28] MEDS ORDERED: ESCITALOPRAM OXALATE 10 MG TABLET (FP) ONE (08:48)
[2017-12-28] MEDS ORDERED: DEXTROSE 5%-WATER - 50 ML IVPB ONE (08:48)
[2017-12-28] MEDS: ONDANSETRON 4 MG/2 ML VIAL IVPUSH PRN (08:54)
[2017-12-28] MEDS: CEFTRIAXONE 1 GM in DEXTROSE 5%-WATER - 50 ML IVPB SCH (09:03)
[2017-12-28] MEDS: ESCITALOPRAM OXALATE 20 MG TABLET (FP) PO SCH (09:03)
[2017-12-28] MEDS: KETOROLAC TROMETHAMINE 15 MG/ML VIAL IVPUSH PRN (10:34)
--- NOTE | 2017-12-28 13:33 | PN ---
Teaching Attending Note Name of Resident: Ildefonso Mathews ATTENDING PHYSICIAN STATEMENT I saw and evaluated the patient. I reviewed the resident's note and discussed the case with the resident. I agree with the resident's findings and plan as documented. SUBJECTIVE: Patient feels tired. She still has back pain. She had fever 102.6 yesterday. OBJECTIVE: Vital Signs Period Temp Pulse Resp BP Sys/Buck Pulse Ox Last 24 Hr 98.7 F-102.6 F 75-98 18-20 126-152/65-75 98-98 HEART: S1S2, RRR LUNGS: Clear ABDOMEN: Soft, non-tender, non-distended, normal BS, (+) right CVA tenderness EXTREMITIES: No edema Laboratory Results - last 24 hr 12/28/17 12/28/17 07:15 07:15 WBC 5.8 RBC 3.70 Hgb 11.4 Hct 34.5 MCV 93.2 MCH 30.7 MCHC 33.0 RDW 12.9 Plt Count 241 MPV 8.5 Absolute Neuts (auto) 4.4 Neutrophils % 75.3 Lymphocytes % 18.2 Monocytes % 5.4 Eosinophils % 0.6 Basophils % 0.5 Nucleated RBC % 0 Sodium 141 Potassium 3.9 Chloride 109 H Carbon Dioxide 26 Anion Gap 7 L BUN 5 L Creatinine 0.7 Creat Clearance w eGFR > 60 Random Glucose 85 Calcium 8.0 L Current Medications Generic Name Dose Route Start Last Admin Trade Name Freq PRN Reason Stop Dose Admin Acetaminophen 650 mg 12/27/17 19:49 12/27/17 20:39 Tylenol - PO 650 mg Q6H PRN Administration Fever Or Pain Clonazepam 2 mg 12/26/17 22:00 12/28/17 00:42 Klonopin - PO 2 mg HS FARHANA Administration Escitalopram Oxalate 20 mg 12/27/17 10:00 12/28/17 09:03 Lexapro - PO 20 mg DAILY FARHANA Administration Fentanyl 50 mcg 12/26/17 14:27 12/26/17 16:30 Sublimaze Injection - IVPUSH 50 mcg [id number] PRN Administration PAIN-PACU ORDER X 4 DOSES ONLY Heparin Sodium (Porcine) 5,000 unit 12/26/17 18:00 12/28/17 09:03 Heparin - SQ 5,000 unit Q8H-IV FARHANA Administration Lactated Ringer's 1,000 mls @ 125 mls/hr 12/26/17 14:30 12/27/17 14:43 Lactated Ringers Solution IV Not Given ASDIR FARHANA Ceftriaxone Sodium 1 gm/ 50 mls @ 100 mls/hr 12/27/17 10:00 12/28/17 09:03 Dextrose IVPB 100 mls/hr DAILY FARHANA Administration Sodium Chloride 1,000 mls @ 125 mls/hr 12/26/17 14:48 12/28/17 08:56 Normal Saline - IV 125 mls/hr ASDIR FARHANA Administration Ketorolac Tromethamine 15 mg 12/26/17 14:48 12/28/17 10:34 Toradol Injection - IVPUSH 12/31/17 12:38 15 mg Q6H PRN Administration PAIN LEVEL 1-5 Morphine Sulfate 4 mg 12/26/17 14:48 12/27/17 18:04 Morphine Sulfate IVPUSH 4 mg Q4H PRN Administration PAIN LEVEL 6-10 Ondansetron HCl 4 mg 12/26/17 14:48 12/28/17 08:54 Zofran Injection IVPUSH 4 mg Q6H PRN Administration NAUSEA AND/OR VOMITING ASSESSMENT AND PLAN: This is a 32 year old woman with a history of depression, anxiety who presented to the ED with abdominal pain, nausea, vomiting, fever, and chills. 1. Sepsis (tachycardia, WBC 14.0) secondary to E. coli UTI with obstructing right UVJ stone - Had temp 102.6 yesterday afternoon and has been afebrile since - WBC improved - Urine culture growing E. coli - Continue Rocephin, IV fluid, Toradol as needed for pain, Zofran as needed for nausea - Stent placed 12/26 2. Depression with anxiety - Continue Lexapro, Klonopin
[2017-12-28] MEDS: morphine SULFATE 4 MG/ML VIAL IVPUSH PRN (16:16)
[2017-12-29] MEDS: KETOROLAC TROMETHAMINE 15 MG/ML VIAL IVPUSH PRN ×3 (00:58→18:01)
[2017-12-29] MEDS: HEPARIN NA (PORCINE) 5,000 UNITS/ML 1ML VIAL SQ SCH ×3 (01:48→18:00)
[2017-12-29] MEDS: SODIUM CHLORIDE 1,000 ML IV SCH ×2 (03:14→11:11)
[2017-12-29 06:32] LABS: URINE APPEARANCE CLEAR; URINE BILIRUBIN NEGATIVE (<2.0 mg/dL); URINE COLOR LTYELLOW; URINE GLUCOSE (UA) NEGATIVE (NEGATIVE); URINE KETONE NEGATIVE (NEGATIVE); URINE LEUK ESTERASE NEGATIVE (NEGATIVE); URINE NITRITE NEGATIVE (NEGATIVE); URINE PROTEIN NEGATIVE (NEGATIVE); URINE UROBILINOGEN NEGATIVE mg/dL (0.2-1.0)
[2017-12-29 06:37] LABS: EPI CELLS RARE /HPF (FEW); URINE BACTERIA MODERATE /hpf (NONE SEEN); URINE MUCUS RARE
--- NOTE | 2017-12-29 10:20 | CON.ID ---
Consult Consult Specialty:: infectious disease Referred by:: hospitalist Reason for Consultation:: fever - History of Present Illness Chief Complaint: abdominal pain History of Present Illness: 32 year old female presented to ED on 12/26 with acute onset of abdominal pain and nausea early am- no fevers ct scan showed nephrolithiasis with right UVJ stone and dialtation of ureter on the right, with right perinephric stranding she received levaquin in the ED she had stent placement on 12/26 she was switch to ceftriaxone yesterday continues with fever -intermittent- as high as 102 nausea has resolved refused blood cultures earlier, now agreeable urine culture with pansensitive ecoli +history prior uti never hospitalized recently lost her job, has moved back in with her mother no sick contacts no recent antiibotics no vaginal discharge, last sexually active one month ago - History Source History Provided By: Patient, Medical Record Limitations to Obtaining History: Clinical Condition - Past Medical History ...LMP: 12/10/17 ...: No Psych: Yes: Anxiety, Depression - Past Surgical History Past Surgical History: Yes: None - Alcohol/Substance Use Hx Alcohol Use: No - Smoking History Smoking history: Current every day smoker Have you smoked in the past 12 months: Yes Aproximately how many cigarettes per day: 4 - Social History Usual Living Arrangement: With Parent ADL: Independent Occupation: unemployed Place of : [facility] History of Recent Travel: No Home Medications - Allergies Allergies/Adverse Reactions: Allergies Allergy/AdvReac Type Severity Reaction Status Date / Time No Known Allergies Allergy Verified 12/26/17 03:34 - Home Medications Home Medications: Ambulatory Orders Clonazepam [Klonopin] 2 mg PO HS 12/26/17 Escitalopram Oxalate [Lexapro -] 20 mg PO DAILY 12/26/17 Family Disease History - Family Disease History Family History: Denies Review of Systems - Review of Systems Constitutional: reports: Chills, Fever Eyes: reports: No Symptoms HENT: reports: No Symptoms Neck: reports: No Symptoms Cardiovascular: denies: Chest Pain Respiratory: denies: Cough Gastrointestinal: reports: Abdominal Pain (right flank) Genitourinary: reports: No Symptoms Physical Exam Vital Signs: Vital Signs Temperature 98.9 F 12/29/17 06:05 Pulse Rate 72 12/29/17 06:05 Respiratory Rate 18 12/29/17 06:05 Blood Pressure 114/64 12/29/17 06:05 O2 Sat by Pulse Oximetry (%) 98 12/28/17 22:00 Constitutional: Yes: Well Nourished, No Distress, Calm Eyes: Yes: Conjunctiva Clear HENT: Yes: Atraumatic, Normocephalic Neck: Yes: Supple, Trachea Midline Cardiovascular: Yes: Regular Rate and Rhythm Respiratory: Yes: Regular, CTA Bilaterally Gastrointestinal: Yes: Normal Bowel Sounds, Soft. No: Tenderness, Rebound ...Rectal Exam: Yes: Deferred Renal/: Yes: CVA Tenderness - Right Extremities: Yes: WNL Edema: No Psychiatric: Yes: Alert Labs: CBC, BMP 12/28/17 07:15 12/28/17 07:15 Microbiology 12/26/17 08:00 Urine - Urine Clean Catch Urine Culture - Final Escherichia Coli Imaging - Results Cat Scan: Report Reviewed Problem List - Problems (1) Fever Code(s): R50.9 - FEVER, UNSPECIFIED (2) E-coli UTI Code(s): N39.0 - URINARY TRACT INFECTION, SITE NOT SPECIFIED; B96.20 - UNSP ESCHERICHIA COLI THE CAUSE OF DISEASES CLASSD ELSWHR (3) Right ureteral stone Code(s): N20.1 - CALCULUS OF URETER Assessment/Plan intermittent fevers- I suspect will resolve next 24 hours s/p ureteral stent for obstructed stone pansensitive ecoli UTI wbc now normal continue ceftriaxone increase to 2 g daily continue ivf agreeable to hiv testing will order
--- NOTE | 2017-12-29 10:33 | PN ---
Physical Exam: SUBJECTIVE: Patient seen and examined. Back pain is improving. She describes it now as discomfort. Had fever 102.9 overnight. OBJECTIVE: Vital Signs Period Temp Pulse Resp BP Sys/Buck Pulse Ox Last 24 Hr 98.4 F-102.9 F 72-100 18-18 105-137/60-74 98 GENERAL: The patient is awake, alert, and fully oriented, in no acute distress. LUNGS: Breath sounds equal, clear to auscultation bilaterally, no wheezes, no crackles, no accessory muscle use. HEART: Regular rate and rhythm, S1, S2 without murmur, rub or gallop. ABDOMEN: Soft, nontender, nondistended, normoactive bowel sounds, no guarding, no rebound, no hepatosplenomegaly, no masses. (+) mild right CVA tenderness EXTREMITIES: 2+ pulses, warm, well-perfused, no edema. Laboratory Results - last 24 hr 12/29/17 06:00 Urine Color Ltyellow Urine Appearance Clear Urine pH 6.0 Ur Specific [place] 1.004 L Urine Protein Negative Urine Glucose (UA) Negative Urine Ketones Negative Urine Blood 3+ H Urine Nitrite Negative Urine Bilirubin Negative Urine Urobilinogen Negative Ur Leukocyte Esterase Negative Urine WBC (Auto) 1 Urine RBC (Auto) 15 Ur Epithelial Cells Rare Urine Bacteria Moderate Urine Mucus Rare Active Medications Generic Name Dose Route Start Last Admin Trade Name Freq PRN Reason Stop Dose Admin Acetaminophen 650 mg 12/27/17 19:49 12/27/17 20:39 Tylenol - PO 650 mg Q6H PRN Administration Fever Or Pain Clonazepam 2 mg 12/26/17 22:00 12/28/17 21:50 Klonopin - PO 2 mg HS FARHANA Administration Escitalopram Oxalate 20 mg 12/27/17 10:00 12/28/17 09:03 Lexapro - PO 20 mg DAILY FARHANA Administration Fentanyl 50 mcg 12/26/17 14:27 12/26/17 16:30 Sublimaze Injection - IVPUSH 50 mcg [id number] PRN Administration PAIN-PACU ORDER X 4 DOSES ONLY Heparin Sodium (Porcine) 5,000 unit 12/26/17 18:00 12/29/17 01:48 Heparin - SQ Not Given Q8H-IV FARHANA Sodium Chloride 1,000 mls @ 125 mls/hr 12/26/17 14:48 12/29/17 03:14 Normal Saline - IV 125 mls/hr ASDIR FARHANA Administration Ceftriaxone Sodium 2 gm in 50 mls @ 100 mls/hr 12/29/17 10:30 Ceftriaxone 2 Gm-D5w Bag IVPB DAILY [facility] Protocol Ketorolac Tromethamine 15 mg 12/26/17 14:48 12/29/17 00:58 Toradol Injection - IVPUSH 12/31/17 12:38 15 mg Q6H PRN Administration PAIN LEVEL 1-5 Morphine Sulfate 4 mg 12/26/17 14:48 12/28/17 16:16 Morphine Sulfate IVPUSH 4 mg Q4H PRN Administration PAIN LEVEL 6-10 Ondansetron HCl 4 mg 12/26/17 14:48 12/28/17 08:54 Zofran Injection IVPUSH 4 mg Q6H PRN Administration NAUSEA AND/OR VOMITING ASSESSMENT/PLAN: This is a 32 year old woman with a history of depression, anxiety who presented to the ED with abdominal pain, nausea, vomiting, fever, and chills. 1. Sepsis secondary to E. coli UTI with obstructing right UVJ stone - Stent placed 12/26 - Had temp 102.9 last night - WBC improved yesterday - Urine culture repeated last night - Patient refused labs and blood cultures - Continue Rocephin, IV fluid, Toradol as needed for pain, Zofran as needed for nausea - ID consult 2. Depression with anxiety - Continue Alla Joe Visit type - Emergency Visit Emergency Visit: Yes ED Registration Date: 12/26/17 Care time: The patient presented to the Emergency Department on the above date and was hospitalized for further evaluation of their emergent condition. - New Patient This patient is new to me today: No - Critical Care Critical Care patient: No - Discharge Referral Referred to [facility] Med P.C.: No
[2017-12-29] MEDS ORDERED: ESCITALOPRAM OXALATE 10 MG TABLET (FP) ONE (10:39)
[2017-12-29] MEDS ORDERED: DEXTROSE 5%-WATER 100 ML IVPB ONE (10:40)
[2017-12-29] MEDS: CEFTRIAXONE 2 GM in DEXTROSE 5%-WATER 100 ML IVPB SCH (10:52)
[2017-12-29] MEDS: ESCITALOPRAM OXALATE 20 MG TABLET (FP) PO SCH (10:53)
[2017-12-29] MEDS: ONDANSETRON 4 MG/2 ML VIAL IVPUSH PRN (18:00)
[2017-12-29] MEDS: clonazePAM 0.5 MG TABLET PO SCH (21:24)
[2017-12-30] MEDS: morphine SULFATE 4 MG/ML VIAL IVPUSH PRN (00:19)
[2017-12-30] MEDS: HEPARIN NA (PORCINE) 5,000 UNITS/ML 1ML VIAL SQ SCH ×3 (02:05→18:02)
--- NOTE | 2017-12-30 03:29 | HOSP ---
Physical Examination Vital Signs: Vital Signs Temperature 98.8 F 12/29/17 10:00 Pulse Rate 73 12/29/17 10:00 Respiratory Rate 18 12/29/17 10:00 Blood Pressure 135/85 12/29/17 10:00 O2 Sat by Pulse Oximetry (%) 98 12/29/17 22:00 Labs: CBC, BMP 12/28/17 07:15 12/28/17 07:15 Hospitalist Encounter Assessment: Hospitalist team paged to evaluate pt as she is refusing I.V fluids at this time. Pt states refusing I.V fluids bc it is making her go to bathroom too frequently. Agreed to keep fluids on lowest rate so that ABx may continue to be infused. Visit type - Emergency Visit Emergency Visit: No - New Patient This patient is new to me today: Yes Date on this admission: 12/30/17 - Critical Care Critical Care patient: No
[2017-12-30] MEDS: SODIUM CHLORIDE 1,000 ML IV SCH ×2 (04:00→10:33)
[2017-12-30] MEDS: ACETAMINOPHEN 325 MG TABLET (FP) PO PRN ×2 (06:07→19:27)
[2017-12-30] MEDS: KETOROLAC TROMETHAMINE 15 MG/ML VIAL IVPUSH PRN ×2 (08:26→17:07)
[2017-12-30] MEDS ORDERED: ESCITALOPRAM OXALATE 10 MG TABLET (FP) ONE (10:04)
[2017-12-30] MEDS: ESCITALOPRAM OXALATE 20 MG TABLET (FP) PO SCH (10:28)
[2017-12-30] MEDS: CEFTRIAXONE 2 GM in DEXTROSE 5%-WATER 100 ML IVPB SCH (11:54)
--- NOTE | 2017-12-30 13:19 | PN ---
Physical Exam: SUBJECTIVE: Patient seen and examined. She reports she is still having right flank pain and nausea. OBJECTIVE: Vital Signs Period Temp Pulse Resp BP Sys/Buck Pulse Ox Last 24 Hr 97.6 F-100.0 F 77-86 18-20 138-154/86-89 98 GENERAL: The patient is awake, alert, and fully oriented, in no acute distress. LUNGS: Breath sounds equal, clear to auscultation bilaterally, no wheezes, no crackles, no accessory muscle use. HEART: Regular rate and rhythm, S1, S2 without murmur, rub or gallop. ABDOMEN: Soft, nontender, nondistended, normoactive bowel sounds, no guarding, no rebound, no hepatosplenomegaly, no masses. (+) mild right CVA tenderness EXTREMITIES: 2+ pulses, warm, well-perfused, no edema. Active Medications Generic Name Dose Route Start Last Admin Trade Name Freq PRN Reason Stop Dose Admin Acetaminophen 650 mg 12/27/17 19:49 12/30/17 06:07 Tylenol - PO 650 mg Q6H PRN Administration Fever Or Pain Clonazepam 2 mg 12/26/17 22:00 12/29/17 21:24 Klonopin - PO 2 mg HS FARHANA Administration Escitalopram Oxalate 20 mg 12/27/17 10:00 12/30/17 10:28 Lexapro - PO 20 mg DAILY FARHANA Administration Fentanyl 50 mcg 12/26/17 14:27 12/26/17 16:30 Sublimaze Injection - IVPUSH 50 mcg [id number] PRN Administration PAIN-PACU ORDER X 4 DOSES ONLY Heparin Sodium (Porcine) 5,000 unit 12/26/17 18:00 12/30/17 10:28 Heparin - SQ 5,000 unit Q8H-IV FARHANA Administration Ceftriaxone Sodium 2 gm/ 100 mls @ 200 mls/hr 12/29/17 10:30 12/30/17 11:54 Dextrose IVPB 200 mls/hr DAILY FARHANA Administration Protocol Sodium Chloride 1,000 mls @ 42 mls/hr 12/30/17 03:27 12/30/17 10:33 Normal Saline - IV 42 mls/hr ASDIR FARHANA Administration Ketorolac Tromethamine 15 mg 12/26/17 14:48 12/30/17 08:26 Toradol Injection - IVPUSH 12/31/17 12:38 15 mg Q6H PRN Administration PAIN LEVEL 1-5 Morphine Sulfate 4 mg 12/26/17 14:48 12/30/17 00:19 Morphine Sulfate IVPUSH 4 mg Q4H PRN Administration PAIN LEVEL 6-10 Ondansetron HCl 4 mg 12/26/17 14:48 12/29/17 18:00 Zofran Injection IVPUSH 4 mg Q6H PRN Administration NAUSEA AND/OR VOMITING ASSESSMENT/PLAN: This is a 32 year old woman with a history of depression, anxiety who presented to the ED with abdominal pain, nausea, vomiting, fever, and chills. 1. Sepsis secondary to E. coli UTI with obstructing right UVJ stone - Stent placed 12/26 - Fevers, tachycardia, leukocytosis improved - Urine culture (12/26) grew E. coli - Urine culture (12/29) growing gram neg rods, coag neg Staph - Refused blood cultures (12/29) - Continue Rocephin, IV fluid, Toradol as needed for pain, Zofran as needed for nausea - Renal US ordered 2. Depression with anxiety - Continue Alla Joe Visit type - Emergency Visit Emergency Visit: Yes ED Registration Date: 12/26/17 Care time: The patient presented to the Emergency Department on the above date and was hospitalized for further evaluation of their emergent condition. - New Patient This patient is new to me today: No - Critical Care Critical Care patient: No - Discharge Referral Referred to [facility] No
--- NOTE | 2017-12-30 14:38 | PN ---
Progress Note (short form) - Note Progress Note: continues with right sided pain, still gets morphine! temps down Vital Signs Period Temp Pulse Resp BP Sys/Buck Pulse Ox Last 24 Hr 97.6 F-100.0 F 77-86 18-20 138-154/86-89 98 laying on her right side I cannot examine her refuses to lay flat to permit exam lungs clear CBC, BMP 12/28/17 07:15 12/28/17 07:15 Microbiology 12/29/17 10:30 Blood - Peripheral Venous Blood Culture - Preliminary NO GROWTH OBTAINED AFTER 24 HOURS, INCUBATION TO CONTINUE FOR 4 DAYS. 12/29/17 09:45 Blood - Peripheral Venous Blood Culture - Preliminary NO GROWTH OBTAINED AFTER 24 HOURS, INCUBATION TO CONTINUE FOR 4 DAYS. 12/29/17 06:00 Urine - Urine Clean Catch Urine Culture - Preliminary Non Lactose Fermenting Gnb Staphylococcus Coagulase Neg 12/26/17 08:00 Urine - Urine Clean Catch Urine Culture - Final Escherichia Coli a/p ecoli uti s/p ureteral stent (right) continue ceftriaxone wll get renal sonogram to evaluate continued pain urology f/u Problem List - Problems (1) Fever Code(s): R50.9 - FEVER, UNSPECIFIED (2) E-coli UTI Code(s): N39.0 - URINARY TRACT INFECTION, SITE NOT SPECIFIED; B96.20 - UNSP ESCHERICHIA COLI THE CAUSE OF DISEASES CLASSD ELSWHR (3) Right ureteral stone Code(s): N20.1 - CALCULUS OF URETER
[2017-12-30] MEDS: ONDANSETRON 4 MG/2 ML VIAL IVPUSH PRN (17:03)
[2017-12-30] MEDS: clonazePAM 0.5 MG TABLET PO SCH (21:01)
[2017-12-30] MEDS ORDERED: MELATONIN 5 MG TABLETS PO ONE (23:36)
[2017-12-31] MEDS: HEPARIN NA (PORCINE) 5,000 UNITS/ML 1ML VIAL SQ SCH ×2 (02:00→11:49)
[2017-12-31] MEDS: SODIUM CHLORIDE 1,000 ML IV SCH (04:03)
[2017-12-31 06:22] VITALS: TEMP 98.8
[2017-12-31] MEDS: KETOROLAC TROMETHAMINE 15 MG/ML VIAL IVPUSH PRN (08:04)
[2017-12-31 10:05] VITALS: BP 153/88; PULSE 50
[2017-12-31] MEDS ORDERED: PT OWN MED DRAWER 7, Y5N ONE (10:05)
[2017-12-31] MEDS: CEFTRIAXONE 2 GM in DEXTROSE 5%-WATER 100 ML IVPB SCH (11:48)
[2017-12-31] MEDS: ESCITALOPRAM OXALATE 20 MG TABLET (FP) PO SCH (11:49)
[2017-12-31] MEDS: ACETAMINOPHEN 325 MG TABLET (FP) PO PRN (14:27)
--- NOTE | 2017-12-31 15:27 | PN ---
Physical Exam: SUBJECTIVE: Patient seen and examined OBJECTIVE: Vital Signs Period Temp Pulse Resp BP Sys/Buck Pulse Ox Last 24 Hr 98.2 F-98.8 F 50-76 18-20 131-153/87-90 GENERAL: The patient is awake, alert, and fully oriented, in no acute distress. HEAD: Normal with no signs of trauma. EYES: PERRL, extraocular movements intact, sclera anicteric, conjunctiva clear. No ptosis. ENT: Ears normal, nares patent, oropharynx clear without exudates, moist mucous membranes. NECK: Trachea midline, full range of motion, supple. LUNGS: Breath sounds equal, clear to auscultation bilaterally, no wheezes, no crackles, no accessory muscle use. HEART: Regular rate and rhythm, S1, S2 without murmur, rub or gallop. ABDOMEN: Soft, nontender, nondistended, normoactive bowel sounds, no guarding, no rebound, no hepatosplenomegaly, no masses. EXTREMITIES: 2+ pulses, warm, well-perfused, no edema. NEUROLOGICAL: Cranial nerves II through XII grossly intact. Normal speech, gait not observed. PSYCH: Normal mood, normal affect. SKIN: Warm, dry, normal turgor, no rashes or lesions noted Active Medications Generic Name Dose Route Start Last Admin Trade Name Freq PRN Reason Stop Dose Admin Acetaminophen 650 mg 12/27/17 19:49 12/31/17 14:27 Tylenol - PO 650 mg Q6H PRN Administration Fever Or Pain Clonazepam 2 mg 12/26/17 22:00 12/30/17 21:01 Klonopin - PO 2 mg HS FARHANA Administration Escitalopram Oxalate 20 mg 12/27/17 10:00 12/31/17 11:49 Lexapro - PO Not Given DAILY FARHANA Fentanyl 50 mcg 12/26/17 14:27 12/26/17 16:30 Sublimaze Injection - IVPUSH 50 mcg [id number] PRN Administration PAIN-PACU ORDER X 4 DOSES ONLY Heparin Sodium (Porcine) 5,000 unit 12/26/17 18:00 12/31/17 11:49 Heparin - SQ Not Given Q8H-IV FARHANA Ceftriaxone Sodium 2 gm/ 100 mls @ 200 mls/hr 12/29/17 10:30 12/31/17 11:48 Dextrose IVPB 200 mls/hr DAILY FARHANA Administration Protocol Sodium Chloride 1,000 mls @ 42 mls/hr 12/30/17 03:27 12/31/17 04:03 Normal Saline - IV Not Given ASDIR FARHANA Ondansetron HCl 4 mg 12/26/17 14:48 12/30/17 17:03 Zofran Injection IVPUSH 4 mg Q6H PRN Administration NAUSEA AND/OR VOMITING ASSESSMENT/PLAN:
--- NOTE | 2017-12-31 16:43 | DS ---
Physical Exam: SUBJECTIVE: Patient seen and examined OBJECTIVE: Vital Signs Period Temp Pulse Resp BP Sys/Buck Pulse Ox Last 24 Hr 98.2 F-98.8 F 50-76 18-20 131-153/87-90 PHYSICAL EXAM GENERAL: The patient is awake, alert, and fully oriented, in no acute distress. HEAD: Normal with no signs of trauma. EYES: PERRL, extraocular movements intact, sclera anicteric, conjunctiva clear. ENT: Ears normal, nares patent, oropharynx clear without exudates, moist mucous membranes. NECK: Trachea midline, full range of motion, supple. LUNGS: Breath sounds equal, clear to auscultation bilaterally, no wheezes, no crackles, no accessory muscle use. HEART: Regular rate and rhythm, S1, S2 without murmur, rub or gallop. ABDOMEN: Soft, nontender, nondistended, normoactive bowel sounds, no guarding, no rebound, no hepatosplenomegaly, no masses. EXTREMITIES: 2+ pulses, warm, well-perfused, no edema. NEUROLOGICAL: Cranial nerves II through XII grossly intact. Normal speech, gait not observed. PSYCH: Normal mood, normal affect. SKIN: Warm, dry, normal turgor, no rashes or lesions noted. LABS HOSPITAL COURSE: Date of Admission:12/26/17 Date of Discharge: 12/31/17 Discharge Summary Reason For Visit: URINARY TRACT INFECTION, LEUKOCYTOSIS, OBSTRUCTIVE Current Active Problems Acute pyelonephritis (Acute) E-coli UTI (Acute) Hydronephrosis of right kidney (Acute) Right ureteral stone (Acute) Sepsis (Acute) Depression with anxiety (Chronic) Condition: Improved - Instructions Diet, Activity, Other Instructions: You were admitted to [facility] on 12/26 with abdominal pain and nausea caused by an obstructing right ureteral stone with UTI/ pyelonephritis. You were treated with IV fluid, ceftriaxone (antibiotic). Urine culture grew E. coli. You were seen by a urologist, Dr. Jacinto. You had a stent placed on 12/26. You were continued to be treated with IV antibiotics until your fevers improved. You are being discharged on 12/31. You will need to continue to take antibiotics for another 7 days. A prescription for Levaquin has been sent to [facility]. You may resume your usual diet and activity. You should schedule an appointment with Dr. Jacinto in 1 week. Please return to the ER if you develop fever, pain, nausea/vomiting. Disposition: HOME - Home Medications Comprehensive Discharge Medication List: Ambulatory Orders Clonazepam [Klonopin] 2 mg PO HS 12/26/17 Escitalopram Oxalate [Lexapro -] 20 mg PO DAILY 12/26/17 levoFLOXacin [Levaquin -] 500 mg PO DAILY #7 tablet 12/31/17 - Discharge Referral Referred to [facility] No
== END 2017-12-31 16:40 | disposition home or self-care (01) | DRG 720 ==
LOC: JER 03:04 → JERBED 11:09 → OBSVTOIN 12:39 → J6S 17:00
PROVIDERS: ADMIT Internal Medicine; ATTEND Internal Medicine
PROC: 0T767DZ Dilation of Right Ureter with Intraluminal Device, Via Natural or Artificial Opening (ICD-10-PCS; principal; 2017-12-26 13:00)
DX: A41.9 Sepsis, unspecified organism (principal); N20.1 Calculus of ureter; N10 Acute pyelonephritis; B96.29 Other Escherichia coli [E. coli] as the cause of diseases classified elsewhere; E86.0 Dehydration; F32.9 Major depressive disorder, single episode, unspecified; F41.9 Anxiety disorder, unspecified; F17.210 Nicotine dependence, cigarettes, uncomplicated
CPT/HCPCS: 36415; 71045-TC-FY; 74177-TC; 76000-TC-FY; 76775-TC; 80048; 80053; 81003; 81015; 83036; 83690; 83735; 84100; 84703; 85025; 85610; 85730; 87040; 87086; 87186; 87389; 93005; 93010; 94760; 99283-25; G0378; J1644; J7030

== ENCOUNTER 2021-11-23 12:09 | Emergency (ER) | payer OTHER ==
[2021-11-23] MEDS ORDERED: SODIUM CHLORIDE 1,000 ML IV STA (12:36)
[2021-11-23 13:49] LABS: PH,URINE 8.5 (5.0-8.0); URINE APPEARANCE CLEAR; URINE BILIRUBIN NEGATIVE (NEGATIVE); URINE COLOR YELLOW; URINE GLUCOSE (UA) NEGATIVE (NEGATIVE); URINE KETONE NEGATIVE (NEGATIVE); URINE LEUK ESTERASE NEGATIVE (NEGATIVE); URINE NITRITE NEGATIVE (NEGATIVE); URINE PROTEIN NEGATIVE (NEGATIVE)
[2021-11-23 13:57] LABS: BASO % 0.7 % (0-2.0); EOS % 0.8 % (0-4.5); HEMATOCRIT 42.7 % (32.4-45.2); HEMOGLOBIN 14.1 GM/dL (10.7-15.3); LYMPH % 33.1 % (8-40); MCH 31.3 pg (25.7-33.7); MCHC 33.1 g/dl (32.0-36.0); MEAN CELL VOLUME 94.5 fl (80-96); NEUT % 59.4 % (42.8-82.8); PLATELET COUNT 409 10^3/uL (134-434); RBC 4.52 M/mm3 (3.60-5.2); RDW 14.5 % (11.6-15.6); WHITE BLOOD COUNT 8.6 K/mm3 (4.0-10.0)
[2021-11-23 13:58] LABS: CALCIUM 9.5 mg/dL (8.5-10.1)
[2021-11-23 13:59] LABS: BLOOD UREA NITROGEN 13.5 mg/dL (7-18)
[2021-11-23 14:02] LABS: CREATININE 0.8 mg/dL (0.55-1.3)
[2021-11-23 14:03] LABS: BILIRUBIN,TOTAL 0.4 mg/dL (0.2-1)
[2021-11-23 14:04] LABS: TOT PROT 7.8 g/dl (6.4-8.2)
[2021-11-23 14:11] LABS: HCG,QUALITATIVE URINE Negative
[2021-11-23 14:32] VITALS: BP 140/80; PULSE 80; RESP 16; TEMP 98.3
== END 2021-11-23 14:32 | disposition home or self-care (01) ==
LOC: JER 12:09
PROC: 3E0337Z Introduction of Electrolytic and Water Balance Substance into Peripheral Vein, Percutaneous Approach (ICD-10-PCS; principal; 2021-11-23)
DX: R42 Dizziness and giddiness (principal); F41.0 Panic disorder [episodic paroxysmal anxiety]
CPT/HCPCS: 36415; 80053; 81003; 84703; 85025; 87086; 93005; 93010; 99284-25